=== PATIENT | female | born 1965 | race Caucasian/White ===

== ENCOUNTER → 2016-06-30 | Outpatient (CLI) | payer BC ==
[~2016-06-30] MED LIST: BCPILLS PO; DESO5TAB PO; GABA-113 PO; HYDR-5688 PO; NAPR1TAB9 PO; NPR250 PO; RXC5 PO
== END | disposition home or self-care (01) ==
LOC: C.PAPS 16:35
PROVIDERS: ATTEND Obstetrics & Gynecology
DX: Z01.419 Encounter for gynecological examination (general) (routine) without abnormal findings (principal)

== ENCOUNTER 2016-08-21 22:30 | Emergency (ER) | payer BC ==
[~2016-08-21] VITALS: Ht 149.9 cm; Wt 70.5 kg
[~2016-08-21 22:30] MED LIST changes: -DESO5TAB PO; -GABA-113 PO; -HYDR-5688 PO; -NAPR1TAB9 PO; -NPR250 PO; -RXC5 PO
[2016-08-21 22:32] VITALS: TEMP 36.4; Ht 149.9 cm; Wt 70.5 kg
[2016-08-21] MEDS ORDERED: KETOROLAC TROMETHAMINE 30 MG/ML VIAL IV STA (22:45)
[2016-08-21] MEDS ORDERED: NAPR1TAB9 PO (22:53)
[2016-08-21 23:09] VITALS: O2SAT 96
[2016-08-21 23:16] LABS: BASO % 0.3 %; BASO ABS # 0.02 K/uL (0-0.2); COMPLETE YES; EOS % 1.5 %; HEMATOCRIT 38.9 % (37-47); IG% 0.1 %; LYMPH % 41.4 %; LYMPH ABS # 3.06 K/uL (1.2-3.4); MEAN CELL VOLUME 91.1 fL (80-100); MEAN CORPUSCULAR HEMOGLOBIN 30.7 pg (25-34); MEAN CORPUSCULAR HGB CONC 33.7 g/dl (32-36); MEAN PLATELET VOLUME 9.9 fL (7.4-10.4); MONO % 10.4 %; NEUT % 46.3 %; PLATELET COUNT 344 K/uL (130-400); RED BLOOD COUNT 4.27 M/uL (4.2-5.4); WHITE BLOOD COUNT 7.39 K/uL (4.8-10.8)
[2016-08-21 23:33] LABS: BLOOD UREA NITROGEN 13 mg/dl (7-18); BUN/CREATININE RATIO 15.2 (10-20); CALCIUM 9.2 mg/dl (8.5-10.1); CARBON DIOXIDE 26 mmol/L (21-32); CHLORIDE 108 mmol/L (98-107); CREATININE 0.83 mg/dl (0.60-1.20); GLUCOSE 108 mg/dl (70-99); POTASSIUM 3.7 mmol/L (3.5-5.1); SODIUM 141 mmol/L (136-145)
[2016-08-22] MEDS ORDERED: TROLAMINE SALICYLATE 10% CRM 255 APPLN/85 GM TUBE EXT STA (01:11)
[2016-08-22] MEDS ORDERED: BACLOFEN 10 MG TAB PO ONE (01:15)
[2016-08-22 01:41] VITALS: BP 162/79; O2SAT 95
[2016-08-22 02:13] VITALS: PULSE 70
--- NOTE | 2016-08-22 05:55 | EMERGENCY ROOM VISIT NOTE ---
History First contact with patient: 22:38 Chief Complaint: NECK PAIN Stated Complaint: NECK PAIN, LEFT ARM PAIN History of Present Illness The patient is a 51 year old female who presents to the Emergency Room with complaints of neck pain that radiates down her left arm for the past 2 days it is worse with movement and better with rest. Currently 5 out of 10. Patient received change jobs and is more lifting with this arm. Patient denies chest pain, dyspnea, fever, chills, dyspnea, back pain, numbness, tingling, abdominal pain, diaphoresis. No other complains per patient. No direct injury to the area. Review of Systems See HPI for pertinent positives & negatives. A total of 10 systems reviewed and were otherwise negative. Past Medical/Surgical History None Social History Smoking Status: Never Smoker Smokeless Tobacco Use: No Drug Use: none Marital Status: Housing Status: lives with family Current/Historical Medications Scheduled Control Pills ( Control Pills), 1 TAB PO DAILY Naproxen (Aleve), 440 MG PO DAILY Allergies Coded Allergies: No Known Allergies (Verified , 08/21/16) Uncoded Allergies: N (Allergy, Unknown, 03/24/02) NKDA (Allergy, Unknown, 03/24/02) Physical Exam Vital Signs Date Time Temp Pulse Resp B/P (MAP) Pulse Ox O2 Delivery O2 Flow Rate FiO2 08/22/16 02:13 70 08/22/16 01:41 77 18 162/79 95 Room Air 08/21/16 23:09 96 Room Air 08/21/16 23:09 96 Room Air 08/21/16 22:56 86 08/21/16 22:32 36.4 86 16 143/74 99 Room Air Pain Rating (0-10): 5.0 Physical Exam VITALS: Vitals are noted on the nurse's note and reviewed by myself. Vital signs stable. GENERAL: Pleasant female, in no acute distress, nondiaphoretic, well-developed well-nourished. SKIN: The skin was without rashes, erythema, edema, or bruising. There is no tenting of the skin. Capillary reflex less than 2 seconds. HEAD: Normocephalic atraumatic. EARS: External auditory canals clear, tympanic membranes pearly martinez without erythema or effusion bilaterally. EYES: Pupils equal round and reactive to light and accommodation. Conjunctivae without injection, sclerae without icterus. Extraocular movements intact. NOSE: Patent, turbinates without inflammation or discharge. MOUTH: Mucous membranes moist. Pharynx without erythema or exudate. Uvula midline. Airway patent. Tongue does not deviate. NECK: Supple without nuchal rigidity. No lymphadenopathy. No thyromegaly. Cervical spine is nontender. No JVD. HEART: Regular rate and rhythm without murmurs gallops or rubs. LUNGS: Clear to auscultation bilaterally without wheezes, rales or rhonchi. No dullness to percussion. No retractions or accessory muscle use. ABDOMEN: Positive bowel sounds x 4. Normal tympanic percussion. Soft, nontender, without masses or organomegaly. Shaver sign negative. No guarding or rebound tenderness. MUSCULOSKELETAL: No muscle atrophy, erythema, or edema noted. Left shoulder, elbow, wrist and hand nontender to palpation with increased pain with range of motion of the left shoulder. Radial pulses +2 equal present bilaterally. 5 out of 5 strength throughout. NEURO: Patient was alert and oriented to person place and time. Normal sensation to light and sharp touch. No focal neurological deficits. Medical Decision & Procedures Laboratory Results 08/21/16 23:00 Red Blood Count 4.27, Mean Corpuscular Volume 91.1, Mean Corpuscular Hemoglobin 30.7, Mean Corpuscular Hemoglobin Concent 33.7, Mean Platelet Volume 9.9, Neutrophils (%) (Auto) 46.3, Lymphocytes (%) (Auto) 41.4, Monocytes (%) (Auto) 10.4, Eosinophils (%) (Auto) 1.5, Basophils (%) (Auto) 0.3, Neutrophils # (Auto ) 3.42, Lymphocytes # (Auto) 3.06, Monocytes # (Auto) 0.77, Eosinophils # (Auto ) 0.11, Basophils # (Auto) 0.02 08/21/16 23:00 Test 08/21/16 23:00 08/22/16 01:19 White Blood Count 7.39 K/uL (4.8-10.8) Red Blood Count 4.27 M/uL (4.2-5.4) Hemoglobin 13.1 g/dL (12.0-16.0) Hematocrit 38.9 % (37-47) Mean Corpuscular Volume 91.1 fL (80-100) Mean Corpuscular Hemoglobin 30.7 pg (25-34) Mean Corpuscular Hemoglobin Concent 33.7 g/dl (32-36) Platelet Count 344 K/uL (130-400) Mean Platelet Volume 9.9 fL (7.4-10.4) Neutrophils (%) (Auto) 46.3 % Lymphocytes (%) (Auto) 41.4 % Monocytes (%) (Auto) 10.4 % Eosinophils (%) (Auto) 1.5 % Basophils (%) (Auto) 0.3 % Neutrophils # (Auto) 3.42 K/uL (1.4-6.5) Lymphocytes # (Auto) 3.06 K/uL (1.2-3.4) Monocytes # (Auto) 0.77 K/uL (0.11-0.59) Eosinophils # (Auto) 0.11 K/uL (0-0.5) Basophils # (Auto) 0.02 K/uL (0-0.2) RDW Standard Deviation 43.9 fL (36.4-46.3) RDW Coefficient of Variation 13.3 % (11.5-14.5) Immature Granulocyte % (Auto) 0.1 % Immature Granulocyte # (Auto) 0.01 K/uL (0.00-0.02) Anion Gap 7.0 mmol/L (3-11) Est Creatinine Clear Calc Drug Dose 70.1 ml/min Estimated GFR () 96.0 Estimated GFR (Non- 82.8 BUN/Creatinine Ratio 15.2 (10-20) Calcium Level 9.2 mg/dl (8.5-10.1) Troponin I < 0.015 ng/ml (0-0.045) Bedside Troponin I < 0.030 ng/ml (0-0.045) Medications Administered Medications (Trade) Dose Ordered Sig/Cuco Route Start Time Stop Time Status Last Admin Dose Admin Ketorolac Tromethamine (Toradol Inj) 30 mg NOW STAT IV 08/21/16 22:45 08/21/16 22:46 DC 08/21/16 23:10 30 MG Baclofen (Lioresal Tab) 10 mg ONE ONCE PO 08/22/16 01:15 08/22/16 01:16 DC 08/22/16 01:41 10 MG Trolamine Salicylate (Myoflex Cream) 1 appln NOW STAT EXT 08/22/16 01:11 08/22/16 01:12 DC 08/22/16 01:41 1 APPLN ED Course Prior records/ancillary studies reviewed. Triage Nursing notes reviewed. Additional history obtained from family The patient's history was concerning for neck pain down left shoulder and arm Differential diagnosis: Etiologies such as cervical radiculopathy, cardiac ischemia, aortic dissection, pulmonary embolism, pneumonia, pneumothorax, musculoskeletal, infections, pericarditis, myocarditis, esophageal rupture, gastrointestinal, as well as others were entertained. Physical examination: As above. ER treatment provided: Toradol, Myoflex cream On reassessment the patient felt better. Diagnostic interpretation by me: The electrocardiogram was negative for pathologic change. Normal sinus, normal intervals, no acute ST-T wave changes. Impression normal sinus rhythm interpreted by myself The labs revealed troponin that is 2 hours apart 2 Imaging studies: Chest x-ray No acute consolidation, pneumothorax or free air per my interpretation Negative cervical CT per radiology Exam and history seem consistent with cervical radiculopathy. Patient had unremarkable workup as above. Her symptoms of that ongoing. She had a negative troponin 22 hours apart and a normal EKG. Her symptoms are easily reproducible a clinical exam. She is advised to stretch the area out and to take anti-inflammatories. She is advised follow-up family care in a few days or here in the ER sooner for severe pain, chest pain, numbness, weakness, worsening signs or symptoms or as needed. Patient was neurovascularly and neurologically intact. She was well-appearing.By the evaluation outlined above emergent etiologies such as cardiac ischemia, aortic dissection, pulmonary embolism, pneumonia, pneumothorax, infections, pericarditis, myocarditis, gastrointestinal, as well as others were deemed relatively unlikely. The pt informed about the findings as listed above. All questions were answered and pleased with the treatment. Return instructions were outlined and the patient was discharged in stable condition. Case reviewed by attending Referral: The patient was referred back to primary care physician for follow-up in 2 to 3 days for a recheck of the current condition. Medical Decision As above Impression Primary Impression: Cervical radiculopathy Departure Information Dispostion Home / Self-Care Condition GOOD Forms WORK / SCHOOL INSTRUCTIONS, HOME CARE DOCUMENTATION FORM, IMPORTANT VISIT INFORMATION Patient Instructions [facility], ED Cervical Radiculopathy Additional Instructions Ibuprofen(Motrin, Advil) may be used for fever or pain. Use 600mg every six hours as needed. Take with food. Avoid using more than 2400mg in a 24 hour period. Do not use 2400mg per day for more than three consecutive days without physician direction. Prolonged inappropriate use can lead to stomach upset or ulcers. (AND/OR) Acetaminophen(Tylenol) may be used for fever or pain. Use 1000mg every six hours as needed. Avoid using more than 3000mg in a 24 hour period. Rest and drink plenty of fluids as tolerated. Continue current medications. Avoid strenuous activities and anything that worsens your pain. Resume normal activities once your symptoms resolve. Return to the ER immediately for worsening or persistent chest pain, abdominal pain, vomiting, fevers, chest pains, difficulty breathing, worsening of your condition, or as needed. Follow up with your primary physician in 2-3 days for a recheck of your current condition.
--- NOTE | 2016-08-22 06:40 | DIAGNOSTIC IMAGING REPORT ---
CT OF THE CERVICAL SPINE CLINICAL HISTORY: Neck pain with left arm radiculopathy. COMPARISON STUDY: No previous studies for comparison. CT DOSE: 282.32 mGy.cm TECHNIQUE: CT scan of the cervical spine was performed from the skull base to the thoracic inlet. Images are reviewed in the axial, sagittal, and coronal planes. IV contrast was not administered for this examination. FINDINGS: There is a small amount of fluid within the sphenoid sinus. The visualized portions of the lung apices reveal no evidence of pneumothorax. The prevertebral soft tissues are normal. No fractures or subluxations are visualized. There is a reversal of the normal cervical lordosis. There are multilevel degenerative changes most pronounced the C4-5, C5-6, and C6-7 levels. There is a small ossicle located superior to the odontoid tip. If there is clinical concern over the presence of cervical cord pathology, an MRI would be recommended in follow-up. IMPRESSION: 1. No fractures or subluxations identified 2. Slight reversal of the normal cervical lordosis 3. Moderate multilevel degenerative change Electronically signed by: Yoseph Petty M.D. 08/22/2016 6:39 AM Dictated Date/Time: 08/22/2016 6:36 AM
--- NOTE | 2016-08-22 06:41 | DIAGNOSTIC IMAGING REPORT ---
CHEST ONE VIEW PORTABLE CLINICAL HISTORY: Atypical chest pain COMPARISON STUDY: No previous studies for comparison. FINDINGS: The cardiac and mediastinal contours are normal. There is no evidence of focal pulmonary consolidation. There is no evidence of failure. No pleural effusions are visualized.[ IMPRESSION: No active disease in the chest. Electronically signed by: Yoseph Petty M.D. 08/22/2016 6:40 AM Dictated Date/Time: 08/22/2016 6:39 AM
== END 2016-08-22 02:15 | disposition home or self-care (01) ==
LOC: C.EDB 22:30
DX: M54.12 Radiculopathy, cervical region (principal)

== ENCOUNTER 2016-11-06 05:13 | Inpatient (IN) | payer BC ==
[2016-10-24 11:03] VITALS: Ht 149.9 cm; Wt 71.6 kg
--- NOTE | 2016-10-24 11:35 | PAT Medication Instructions ---
Service Date Oct 24, 2016. Current Home Medication List Desogestrel-Ethinyl Estradiol (Pimtrea 0.15-0.02/0.01 mg (29/06)), 1 TAB PO QPM Gabapentin (Neurontin), 300 MG PO TID Hydrocodone/Acetaminophen 5MG/325MG ([place] 5MG/325MG), 1 TABLET PO DAILY PRN for Pain Naproxen (Naproxen), 500 MG PO DAILY PRN for Pain Medication Instructions For Your Scheduled Surgery - Hold the following medications the morning of surgery: Naproxen (Naproxen), 500 MG PO DAILY PRN for Pain (otherwise okay to continue per surgeon) - Take the following medications the morning of surgery with a sip of water OTHERWISE NOTHING TO EAT OR DRINK AFTER MIDNIGHT: Gabapentin (Neurontin), 300 MG PO TID Hydrocodone/Acetaminophen 5MG/325MG ([place] 5MG/325MG), 1 TABLET PO DAILY PRN for Pain (may take if needed up to 4 hours prior to surgery) - Take the following medications as scheduled the night before surgery: Naproxen (Naproxen), 500 MG PO DAILY PRN for Pain Gabapentin (Neurontin), 300 MG PO TID Hydrocodone/Acetaminophen 5MG/325MG ([place] 5MG/325MG), 1 TABLET PO DAILY PRN for Pain Desogestrel-Ethinyl Estradiol (Pimtrea 0.15-0.02/0.01 mg (29/06)), 1 TAB PO QPM If you have any questions please call us at [phone] or [phone] or [phone]
[2016-10-24 12:40] LABS: BASO % 0.3 %; BASO ABS # 0.02 K/uL (0-0.2); COMPLETE YES; HEMATOCRIT 39.3 % (37-47); IG% 0.3 %; LYMPH ABS # 2.69 K/uL (1.2-3.4); MEAN CELL VOLUME 92.5 fL (80-100); MEAN CORPUSCULAR HEMOGLOBIN 31.1 pg (25-34); MEAN CORPUSCULAR HGB CONC 33.6 g/dl (32-36); MEAN PLATELET VOLUME 10.6 fL (7.4-10.4); MONO % 5.7 %; NEUT % 58.7 %; PLATELET COUNT 307 K/uL (130-400); RED BLOOD COUNT 4.25 M/uL (4.2-5.4); WHITE BLOOD COUNT 7.91 K/uL (4.8-10.8)
[2016-10-24 12:44] LABS: URINE APPEARANCE CLEAR (CLEAR); URINE BILIRUBIN NEG (NEG); URINE COLOR DK YELLOW; URINE EPITHELIAL CELL AUTO 0-5 /lpf (0-5); URINE NITRITE NEG (NEG); URINE PH 5.5 (4.5-7.5); URINE SPECIFIC GRAVITY 1.026 (1.000-1.030); UROBILINOGEN NEG (NEG); ZZUR CULT IF INDIC CLEAN CATCH YES
[2016-10-24 12:48] LABS: MANUAL MICROSCOPIC REQUIRED? NO; REVIEW REQ? NO
[2016-10-24 13:36] LABS: BUN/CREATININE RATIO 19.5 (10-20); CALCIUM 8.9 mg/dl (8.5-10.1); CREATININE 0.7 mg/dl (0.60-1.20); POTASSIUM 4.2 mmol/L (3.5-5.1)
[~2016-11-06] VITALS: Ht 149.9 cm; Wt 71.6 kg
[2016-11-06] VITALS (16 sets, daily range): BP systolic 117–147; BP diastolic 76–91; PULSE 69–93; TEMP 36.4–37.6; O2SAT 95–100
[~2016-11-06 05:13] MED LIST changes: -BCPILLS PO; +DESO5TAB PO; +GABA-113 PO; +HYDR-5688 PO; +NPR250 PO
[2016-11-06] MEDS ORDERED: CEFAZOLIN 1000MG/55 ML D5W IV SCH (06:00)
[2016-11-06] MEDS ORDERED: LACTATED RINGER'S 1000ML 1,000 ML IV SCH (06:00)
[2016-11-06 06:30] LABS: PREG INTERNAL NEGATIVE QC NEG CLEAR BACKGROUND; PREG INTERNAL POSITIVE QC POS CONTROL LINE
[2016-11-06] MEDS ORDERED: FENTANYL CITRATE INJ 50 MCG/1 ML 2 ML VIAL ONE ×4 (06:50→09:11)
[2016-11-06] MEDS ORDERED: MIDAZOLAM HCL 1 MG/ML 2ML VIAL ONE (06:50)
[2016-11-06] MEDS ORDERED: BACITRACIN 50000 UNIT VIAL ONE (07:03)
--- NOTE | 2016-11-06 07:24 | History & Physical Bridge Note ---
H&P Re-Evaluation Bridge Note: I have examined the patient, reviewed the History & Physical and in the interval since the performance of the History & Physical I have noted the following changes of clinical significance: No changes noted
--- NOTE | 2016-11-06 07:25 | History and Physical ---
History & Physical Date Nov 06, 2016. Chief Complaint Neck and arm pain History of Present Illness The patient is a 51 year old female with complaints of neck and arm pain Additional History Hepatic Disease: No Endocrine Disorder: No Kidney Disease: No Hypertension: No Heart Disease: No Bleeding Tendencies: No Infectious Diseases: No Allergies Coded Allergies: No Known Allergies (Verified , 11/06/16) Home Medications Scheduled Desogestrel-Ethinyl Estradiol (Pimtrea 0.15-0.02/0.01 mg (29/06)), 1 TAB PO QPM Gabapentin (Neurontin), 300 MG PO TID Scheduled PRN Hydrocodone/Acetaminophen 5MG/325MG ([place] 5MG/325MG), 1 TABLET PO DAILY PRN for Pain Naproxen (Naproxen), 500 MG PO DAILY PRN for Pain Physical Examination Skin: warm/dry, no rash Eyes: normal inspection, EOMI, sclerae normal ENT: normal ENT inspection, pharynx normal Head: normocephalic, atraumatic Neck: supple, no adenopathy, trachea midline Respiratory/Chest: lungs clear, normal breath sounds, no respiratory distress Cardiovascular: regular rate, rhythm, no edema, no murmur Abdomen / GI: normal bowel sounds, non tender Back: normal inspection Extremities: normal inspection, normal range of motion Neurologic/Psych: no motor/sensory deficits, alert, normal reflexes, oriented x 3 Diagnosis Cervical spinal stenosis Plan of Treatment ACDF C4 5 with C6 corpectomy and fusion C4 to C7
[2016-11-06] MEDS ORDERED: HYDROmorphone INJ 2 MG/ML SYR/VIAL ONE (07:56)
[2016-11-06] MEDS ORDERED: ONDANSETRON INJ 2 MG/ML 2 ML VIAL IV PRN ×2 (08:15→09:30)
[2016-11-06] MEDS ORDERED: LABETALOL HCL IV 5 MG/ML 20ML IV PRN (08:15)
[2016-11-06] MEDS ORDERED: HYDROmorphone INJ 2 MG/ML SYR/VIAL IV PRN (08:15)
[2016-11-06] MEDS ORDERED: PROMETHAZINE HCL INJ 12.5 MG in SODIUM CHLORIDE 0.9% 50ML 50 ML IV PRN (08:15)
[2016-11-06] MEDS ORDERED: ATROPINE SULFATE 0.1 MG/ML 5ML SYR IV PRN (08:15)
[2016-11-06] MEDS ORDERED: PHENYLEPHRINE 100MCG/ML 5ML SYR ONE (08:53)
[2016-11-06] MEDS ORDERED: DEXAMETHASONE SOD INJ 4 MG/ML VIAL ONE (08:53)
[2016-11-06] MEDS ORDERED: ESMOLOL HCL 10 MG/ML 10 ML VIAL ONE (08:53)
[2016-11-06] MEDS ORDERED: PROPOFOL IV EMULSION 10 MG/ML 20 ML VIAL IV ONE (09:13)
[2016-11-06] MEDS ORDERED: LIDOCAINE HCL 2% 2 ML VIAL (20MG/ML) ONE (09:13)
[2016-11-06] MEDS ORDERED: FLOSEAL HEMOSTATIC MATRIX 10ML TOP ONE (09:14)
[2016-11-06] MEDS ORDERED: LORAZEPAM 0.5 MG TAB PO PRN (09:30)
[2016-11-06] MEDS ORDERED: DEXAMETHASONE INJ 8 MG in SYRINGE 0 ML IV PRN (09:30)
[2016-11-06] MEDS ORDERED: HYDROmorphone INJ 0.5 MG/0.5 ML SYR IV PRN (09:30)
[2016-11-06] MEDS ORDERED: DO NOT ADMINISTER FLU VACCINE PRN ×3 (09:30)
[2016-11-06] MEDS ORDERED: MAGNESIUM HYDROXIDE SUSP 30 ML UDC PO PRN (09:30)
[2016-11-06] MEDS ORDERED: DiphenhydrAMINE HCL 50 MG/ML VIAL IV PRN (09:30)
[2016-11-06] MEDS ORDERED: DO NOT ADMINISTER PNEUMOCOCCAL VACCINE PRN ×2 (09:30)
[2016-11-06] MEDS ORDERED: ACETAMINOPHEN IV 1,000 MG in EMPTY BAG 0 ML IV PRN (09:30)
[2016-11-06] MEDS ORDERED: RACEPINEPHRINE 2.25% NEBU SOLN 0.5 ML VIAL INH PRN (09:30)
[2016-11-06] MEDS ORDERED: NALOXONE HCL 0.4 MG/1 ML VIAL/CARP IV PRN (09:30)
[2016-11-06] MEDS ORDERED: LORAZEPAM INJ 0.5 MG in SYRINGE 0.75 ML IV PRN (09:30)
--- NOTE | 2016-11-06 09:30 | [facility] Operative Report ---
Operative Report Operative Date Nov 06, 2016. Pre-Operative Diagnosis Cervical spinal stenosis Post-Operative Diagnosis Cervical spinal stenosis Procedure(s) Performed #1 anterior cervical corpectomy C6. #2 anterior cervical discectomy C4 5. #3 anterior cervical arthrodesis C4 to C5 and C5 to C6 7. Number placement peek cage 7 mm in height at C4 5 and 21 mm height C5 to C7. #5 placement of locally harvested morcellized autograft combined with DBM in the interbody cages. #6 application of murphy plate and screws from C4 to C7. Surgeon Dr. Wagner Integrated Specialist Surgeon(s) MARGOTH Moralez Estimated Blood Loss 125ML Findings Severe spinal stenosis herniated nucleus pulposus Specimens none per surgeon Description of Procedure Patient was met with preoperatively case discussed all questions are dressed. After informed consent she was taken to the operative suite and underwent intubation and placed in a supine position on the Román table head in [place] headholder. All bony prominences were well-padded eyes inspected to ensure no external pressure. This point the anterior cervical spine was prepped and draped nostril fashion. With the assistance of fluoroscopy identified the C5 6 disc space and transverse incision was placed on the right anterior aspect of the cervical spine overlying this region. Sharp dissection with the assistance of bipolar cautery performed onto an exposing the anterior cervical spine from C4 to C7. Sinton retractors placed. Then performed a complete discectomy of C 56 out to the uncovertebral joints bilaterally followed by C6 7. Sinton distracting pins were then placed in C5 and C7. I then performed a complete corpectomy of C6 removing all posterior annular fibers and performed bilateral foraminotomies. Identifying massive disc fragments in the neural foramen on the left. After this was complete endplates were burred to subcortical bleeding bone and a 21 mm peek cage filled with locally harvested morcellized autograft and DBM placed. Distracting apparatus was removed. I proceeded to the C4 5 level. A complete discectomy was performed out to the uncovertebral joints bilaterally and did remove all posterior annular fibers and longitudinal ligament for bilateral foraminotomies. Endplates were then burred to subcortical bleeding bone and a 7 mm peek cage filled with local autograft DBM tapped in position. Distracting apparatus was removed. All anterior Ross writes burred to smooth cortical surface. Murphy plate and screws applied with the assistance of fluoroscopy. Incision was in copious irrigated explored to ensure there is no damage to surrounding structures remaining bleeding and a 10 round ALTON drain inserted. It was then closed with 2 Vicryl in the fascia for Monocryl for final skin closure. Steri-Strips sterile dressings placed. Patient was awakened and taken to PACU in a stable condition. Please note Yolanda Morse was present at the entire procedure involved in patient positioning complex portions of the surgery and final skin closure. I attest to the content of the Intraoperative Record and any orders documented therein. Any exceptions are noted below.
--- NOTE | 2016-11-06 09:44 | DIAGNOSTIC IMAGING REPORT ---
INTRAOPERATIVE CERVICAL SPINE 2 VIEWS CLINICAL HISTORY: C4-C5 ACDF/C6 CORPECTOMY AND C4-C7 FUSION COMPARISON STUDY: CT scan dated 08/21/2016 FINDINGS: There are postsurgical changes of a C6 corpectomy and C4-C7 anterior spinal fusion. There are postsurgical changes of a C4-5 discectomy. 14 seconds of fluoroscopic time was utilized. 2 fluoroscopic spot images were obtained. A surgical drain within the right neck as visualized. There is an endotracheal tube in place. IMPRESSION: Intraoperative fluoroscopic spot images demonstrating a C4-C7 spinal fusion and C6 corpectomy. Electronically signed by: Yoseph Petty M.D. 11/06/2016 9:43 AM Dictated Date/Time: 11/06/2016 9:40 AM
[2016-11-06] MEDS ORDERED: HYDROmorphone INJ 1 MG/ML SYR ONE (09:58)
--- NOTE | 2016-11-06 11:28 | Anesthesiology Progress Note ---
Anesthesia Post Op Note Date & Time Nov 06, 2016 at 11:27 Vital Signs Pain Intensity: 0.0 Vital Signs Past 12 Hours Date Time Temp Pulse Resp B/P (MAP) Pulse Ox O2 Delivery O2 Flow Rate FiO2 11/06/16 11:20 36.9 83 16 129/87 100 Nasal Cannula 2.0 11/06/16 10:50 36.6 76 13 147/91 99 Nasal Cannula 4.0 11/06/16 10:40 36.3 75 16 130/71 98 Oxymask 2 11/06/16 10:30 77 16 134/78 98 Oxymask 2 11/06/16 10:20 79 16 130/84 99 Oxymask 2 11/06/16 10:10 72 16 132/81 99 Oxymask 2 11/06/16 10:00 80 18 136/78 99 Oxymask 3 11/06/16 09:50 90 14 122/72 98 Oxymask 5 11/06/16 09:40 84 14 132/87 100 Oxymask 10 11/06/16 09:31 36.4 83 14 142/79 97 Oxymask 10 11/06/16 05:51 37 93 18 134/84 97 Room Air Notes Mental Status: alert / awake / arousable, participated in evaluation Pt Amnestic to Procedure: Yes Nausea / Vomiting: adequately controlled Pain: adequately controlled Airway Patency, RR, SpO2: stable & adequate BP & HR: stable & adequate Hydration State: stable & adequate Anesthetic Complications: no major complications apparent
[2016-11-06] MEDS ORDERED: HYDROmorphone INJ 1 MG/ML SYR IV PRN (11:30)
[2016-11-06] MEDS ORDERED: RXC5 PO (11:46)
--- NOTE | 2016-11-06 11:46 | Discharge Instructions ---
Discharge Instructions Date of Service Nov 06, 2016. Admission Reason for Admission: Spinal Stenosis Discharge Discharge Diagnosis / Problem: cervical stenosis Discharge Goals Goal(s): Improve function Activity Recommendations Activity Limitations: per Instructions/Follow-up section . Instructions / Follow-Up Instructions / Follow-Up ACTIVITY RECOMMENDATIONS: SELF CARE INSTRUCTIONS AFTER CERVICAL FUSIONS 1. No smoking. Smoking drastically decreases the chance of a solid fusion. 2. No bending, lifting more than 5 pounds, or twisting (roll like a log when turning in bed). 3. You may shower 3 days after surgery. Thoroughly dry wound. Do not soak in the tub. 4. Cervical collar: Must be worn at all times including sleeping. You may remove the brace only to bath, eat and if you are sitting in a recliner. 5. Please walk as much as you can for exercise. Gradually increase the distance that you walk as your endurance increases. SPECIAL CARE INSTRUCTIONS: VERY IMPORTANT TO READ AND REVIEW A. Do not take any anti-inflammatory medications (i.e. Indocin, Advil, Aspirin, Naprosyn, Aleve, Motrin, etc.) as these may inhibit the chance of a solid fusion. Tylenol is okay to take. B. Your surgical incision has been closed with a cosmetic suture under the skin that will dissolve in about 6 weeks. In 14 days, you can use a pair of clean scissors and cut the suture that is left outside of the skin at the ends of your incision. C. Complications are uncommon, but please contact us if you have any signs or symptoms of: 1. wound infection (fever higher than 102.5 degrees F, redness, separation of wound, drainage, or increasing pain from the incision) 2. blood clots in legs (pain, swelling, redness and warmth in legs) 3. urinary tract infection (fever higher than 102.5 degrees, burning upon urination or increased frequency of urination) 4. nerve problems (inability to walk on your toes or heels, numbness, loss of bowel or bladder control) 5. any other symptoms that concern you. D. Please call the office at if you have any concerns or questions about your operation or recovery. MANAGING PAIN AFTER SPINAL SURGERY 1. Narcotic medication is intended for short-term use and will be provided for surgical pain. Surgical pain usually lasts for a period of 4-6 weeks. Narcotic medication includes Percocet, Vicodin, Darvocet, Tylenol #3 or Lortab. 2. Longer-term pain is more appropriately treated with non-narcotic medication such as Tylenol ES. 3. Muscle spasm is not appropriately treated with narcotics. Muscle relaxers such as Soma, Flexeril or Skelaxin can be used along with Tylenol ES. 4. Remember that we all live with some "aches and pains". This is not unusual or uncommon after an injury or as we get older. 5. We will provide appropriate medication within the normal guidelines of their prescribed use. We will also be very cautious and aware of potential abuse and extended duration of patients' medication needs. 6. Please allow 2-3 days to process refills. Prescriptions will not be mailed but must be picked up at the office. FOLLOW UP VISIT: Keep your scheduled follow-up appointment. Any questions, please call the office at . Current Hospital Diet Patient's current hospital diet: Clear Liquid Diet Discharge Diet Recommended Diet: Regular Diet Procedures Procedures Performed: #1 anterior cervical corpectomy C6. #2 anterior cervical discectomy C4 5. #3 anterior cervical arthrodesis C4 to C5 and C5 to C6 7. Number placement peek cage 7 mm in height at C4 5 and 21 mm height C5 to C7. #5 placement of locally harvested morcellized autograft combined with DBM in the interbody cages. #6 application of griffin plate and screws from C4 to C7. Pending Studies Studies pending at discharge: no Medical Emergencies . Who to Call and When: Medical Emergencies: If at any time you feel your situation is an emergency, please call 911 immediately. . Non-Emergent Contact Non-Emergency issues call your: Primary Care Provider . "Provider Documentation" section prepared by Phillip Wagner. . VTE Core Measure Inpt VTE Proph given/why not?: Jaswinder Espinoza, SCD's
[2016-11-06] MEDS ORDERED: SCOPOLAMINE 1.5 MG TDSY TD SCH (12:00)
[2016-11-06] MEDS ORDERED: GLYCOPYRROLATE INJ 0.2 MG/ML VIAL ONE (12:03)
[2016-11-06] MEDS ORDERED: NEOSTIGMINE METHYLSULFATE 1 MG/ML 10ML VIAL ONE (12:03)
[2016-11-06] MEDS ORDERED: ONDANSETRON INJ 2 MG/ML 2 ML VIAL ONE (12:03)
[2016-11-06] MEDS: LACTATED RINGER'S 1000ML 1,000 ML IV SCH ×2 (12:49→21:26)
[2016-11-06] MEDS: DEXAMETHASONE INJ 6 MG in SYRINGE 0 ML IV SCH ×2 (12:50→20:22)
[2016-11-06] MEDS: GABAPENTIN 300 MG CAP PO SCH ×2 (14:07→20:21)
[2016-11-06] MEDS: CEFAZOLIN IV 2,000 MG in DEXTROSE 5% 50ML 50 ML IV SCH ×2 (14:07→21:28)
[2016-11-06] MEDS: CHECK SCOPOLAMINE PATCH PLACEMENT SCH (14:08)
[2016-11-06] MEDS: OXYCODONE HCL IR 5 MG TAB (IMMEDIATE RELEASE) PO PRN (19:39)
[2016-11-06] MEDS: DOCUSATE SODIUM 100 MG CAP PO SCH (20:22)
[2016-11-07] VITALS (11 sets, daily range): BP systolic 110–120; BP diastolic 63–80; PULSE 70–94; TEMP 36.4–37.3; O2SAT 93–100
[2016-11-07] MEDS: CHECK SCOPOLAMINE PATCH PLACEMENT SCH ×2 (00:06→08:00)
[2016-11-07] MEDS: OXYCODONE HCL IR 5 MG TAB (IMMEDIATE RELEASE) PO PRN (01:39)
[2016-11-07] MEDS: DEXAMETHASONE INJ 6 MG in SYRINGE 0 ML IV SCH (03:50)
[2016-11-07] MEDS: CEFAZOLIN IV 2,000 MG in DEXTROSE 5% 50ML 50 ML IV SCH (05:38)
--- NOTE | 2016-11-07 08:27 | Anesthesiology Progress Note ---
Anesthesia Post Op Note Date & Time Nov 07, 2016 at 08:26 Vital Signs Pain Intensity: 1.0 Vital Signs Past 12 Hours Date Time Temp Pulse Resp B/P (MAP) Pulse Ox O2 Delivery O2 Flow Rate FiO2 11/07/16 07:50 36.5 70 17 117/80 (92) Room Air 11/07/16 07:50 36.5 70 17 117/80 Room Air 11/07/16 07:47 94 16 98 Room Air 11/07/16 07:26 36.9 82 18 119/79 (92) 97 Room Air 11/07/16 05:50 36.8 76 16 120/77 97 Room Air 11/07/16 03:50 36.4 70 16 110/63 99 Humidified Oxygen 2.0 11/07/16 03:15 85 16 100 Nasal Cannula 2.0 11/07/16 01:40 36.6 72 16 115/77 99 Humidified Oxygen 2.0 11/06/16 23:50 36.4 71 16 117/76 99 Humidified Oxygen 2.0 11/06/16 22:57 69 16 98 Nasal Cannula 2.0 11/06/16 21:50 36.8 82 16 117/78 99 Humidified Oxygen 2.0 11/06/16 20:29 76 16 97 Nasal Cannula 2.0 Notes Mental Status: alert / awake / arousable, participated in evaluation Pt Amnestic to Procedure: Yes Nausea / Vomiting: adequately controlled Pain: adequately controlled Airway Patency, RR, SpO2: stable & adequate BP & HR: stable & adequate Hydration State: stable & adequate Anesthetic Complications: no major complications apparent
[2016-11-07] MEDS: DOCUSATE SODIUM 100 MG CAP PO SCH (09:11)
[2016-11-07] MEDS: GABAPENTIN 300 MG CAP PO SCH (09:11)
--- NOTE | 2016-11-07 12:34 | Discharge Summary ---
Orthopedic Discharge Summary Admission Date/Reason Nov 06, 2016 at 07:28 Spinal Stenosis. Discharge Date/Disposition Nov 07, 2016 Home Diagnosis Principal Diagnosis: Cervical spinal stenosis Admission Physical Exam As per Admitting History & Physical. Hospital Course Patient underwent multilevel cervical discectomy and fusion tolerated this well as taken to the orthopedic floor postoperatively. Postoperative day 1 she was swallowing well no hoarseness arm symptoms markedly improved ALTON drain decreased properly subsequently discharged home. Discharge orders and instructions found on the chart for further review. Discharge Instructions Please refer to the electronic Patient Visit Report (Discharge Instructions) for additional information.
[2016-11-09] MEDS ORDERED: BISACODYL 10 MG SUPP PR PRN (06:00)
[2016-11-09] MEDS ORDERED: BISACODYL 5 MG TABEC PO PRN (09:00)
[2016-11-09] MEDS ORDERED: POLYETHYLENE (MIRALAX) 17 GM PACK PO SCH (09:00)
== END 2016-11-07 13:15 | disposition home or self-care (01) | DRG 473 ==
LOC: C.ACU 05:13 → C.3E 07:28 → ENRESERV 10:30
PROVIDERS: ADMIT Orthopaedic Surgery Orthopaedic Surgery of the Spine; ATTEND Orthopaedic Surgery Orthopaedic Surgery of the Spine
PROC: 0RT30ZZ Resection of Cervical Vertebral Disc, Open Approach (ICD-10-PCS; principal; 2016-11-06 07:45)
PROC: 0RG20A0 Fusion of 2 or more Cervical Vertebral Joints with Interbody Fusion Device, Anterior Approach, Anterior Column, Open Approach (ICD-10-PCS; principal; 2016-11-06 07:45)
DX: M48.02 Spinal stenosis, cervical region (principal); Z79.899 Other long term (current) drug therapy